=== PATIENT | male | born 1955 | race Caucasian/White ===

== ENCOUNTER 2016-08-14 02:00 | Inpatient (IN) | payer BC ==
--- NOTE | ~2016-08-14 | DS ---
Discharge Summary [facility] [id number] [place]. [address] NAME: MARLON ENGEL V : 53 STATUS : DIS IN PAT#: [id number] AGE: 61 ADM/REG DATE : 08/14/16 MR#: [id number] REPORT SERV DATE: 08/15/16 DICTATED BY: ACE RODRIGUEZ DATE: 08/15/16 REPORT STATUS : Draft TRANSCRIBED BY: MODL DATE: 08/15/16 ADMISSION DATE: 08/14/2016 DISCHARGE DATE: 08/15/2016 ADDENDUM: DATE OF : 08/15/2016 at 4:28 a.m. For details of this patient's admission and hospital course up until 08/15/2016, please see the interim discharge summary dictated by Dr. Patrica Landeros on 08/13/2016, so this is an addendum to that summary. This was a 61-year-old patient who was transferred here from [facility] on 08/14/2016 mostly for QUANTOMETER OPERATOR and dialysis since the patient had developed acute kidney injury, hyperkalemia, metabolic acidosis, pancreatitis with sepsis. The patient then was transferred here. Vas- Cath was placed. QUANTOMETER OPERATOR was started. The patient was status post exploratory laparotomy, was found to have multiple pockets of inflammation and possible compartment syndrome. Abdomen was left open as per discussion with Dr. Harris, the surgeon. The patient was continued on QUANTOMETER OPERATOR and electrolytes were carefully followed. During the night, the patient developed worsening hyperkalemia and metabolic acidosis that were not corrected by the ongoing therapy, QUANTOMETER OPERATOR, and bicarbonates. Pressor requirement continued to increase and the patient went into asystole at 4:03 on the morning of 08/15/2016. Bryant Brown was called. The patient underwent CPR as per ACLS protocol for at least 30 minutes. There was no return of circulation. Time of was at 4:28 a.m. on 08/15/2016. DICTATED BY: Mayur Gomez/CRISTIAN Ace Rodriguez M.D. / [id number] CC: Antoni Partida MD
[~2016-08-14 02:00] MED LIST: PERCOCET 10/3251 TAB PO
[2016-08-14 03:27] LABS: INTERNATIONAL NORMAL RATI 3.1 UNITS (-); PARTIAL THROMBO TIME 71.3 SEC (22.5-37.2); PROTIME (NOT ORD) 31.7 SEC (12.0-14.5)
[2016-08-14 03:29] LABS: HEMATOCRIT 27.3 % (40.0-51.0); HEMOGLOBIN 8.8 g/dL (13.6-17.8); MEAN CORPUS HGB CONC 32.2 g/dL (32.0-36.0); MEAN CORPUSCULAR HEMOGLOB 33.1 pg (26.0-34.0); MEAN CORPUSCULAR VOLUME 102.6 fL (80-100); NUCLEATED RED BLOOD CELLS 5.9 /100WBC (0-0); PLATELET COUNT 509 10/3/uL (150-400); RBC DISTRIBUTION WIDTH 16.4 % (12.0-16.0); RED CELL COUNT 2.66 10/6/uL (4.7-6.1)
[2016-08-14 03:36] LABS: ACANTHOCYTES FEW (3-10/OIF); BAND NEUTROPHILS 19 %; LYMPHOCYTES 7 %; MACROCYTES 1+ (5-10/OIF) (0-5/OIF); METAMYELOCYTES 11 %; MONOCYTES 1 %; MYELOCYTES 7 %; PLATELET ESTIMATE SLT INC (ADEQUATE); POLYCHROMASIA 1+ (2-5/OIF) (0-1/OIF); SCHISTOCYTES OCC (0-2/OIF); SEGMENTED NEUTROPHIL (0) 55 %; TEARDROP SHAPED RBCS FEW (3-10/OIF); TOTAL NUCLEATED CELLS 100
[2016-08-14 03:40] LABS: A/G RATIO 0.4 (0.7-1.9); ALBUMIN 0.9 G/DL (3.5-5.0); BUN (BLOOD UREA NITROGEN) 94 MG/DL (6-23); CHLORIDE, SERUM 104 MMOL/L (96-112); CK-MB 22.7 NG/ML; CREATININE 4.23 MG/DL (0.70-1.30); GFR AFRICAN AMERICAN 16 ML/MIN (>=60); GFR NON AFRICAN AMERICAN 14 ML/MIN (>=60); GLOBULIN 2.3 G/DL (2.5-4.1); GLUCOSE, SERUM 277 MG/DL (60-99); SGPT(ALT) 1665 U/L (5-65); SODIUM, SERUM 134 MMOL/L (135-148); TOTAL BILIRUBIN 1.6 MG/DL (0-1.2); TOTAL PROTEIN 3.2 G/DL (6.0-8.5)
[2016-08-14 03:43] LABS: MANUAL DIFF YES %; WHITE BLOOD CELLS 54.5 10/3/uL (4.5-10.5)
[2016-08-14 03:44] LABS: ALKALINE PHOSPHATASE 465 U/L (45-117); CALCIUM, SERUM 6.8 MG/DL (8.5-10.4); CO2 (CARBON DIOXIDE) 11 MMOL/L (24-34); POTASSIUM, SERUM 7.5 MMOL/L (3.5-5.3); TROPONIN I 0.21 NG/ML (<0.05)
[2016-08-14 03:51] LABS: BE (BASE EXCESS) -17.8 MEQ/L (0 +/- 2.5); CARBOXYHEMOGLOBIN 0.3 % (0-3); HEMOBLOGIN CONTENT 9.7 G/DL (14-18); INSTRUMENT SERIAL # 8083; METHEMOGLOBIN 0.4 % (0-3); MODE CMV; O2 CONTENT 12.2 VOL% (18-24); OPERATOR ID 17370; PCO2 (CO2 TENSION) 31 MMHG (35-45); PO2 (O2 TENSION) 76 MMHG (79-93); SAMPLE Arterial; TIDAL VOLUME 600 ML; pH 7.13 (7.37-7.43)
[2016-08-14 04:04] LABS: CPK 1697 U/L (0-200); SGOT(AST) 8193 U/L (5-40)
[2016-08-14 04:13] LABS: CKMB INDEX (NOT ORD) 1.3; PHOSPHORUS, SERUM 9.7 MG/DL (2.5-4.5)
[2016-08-14 04:35] LABS: PROCALCITONIN 12.67 ng/mL (<0.5)
[2016-08-14 07:56] LABS: BE (BASE EXCESS) -12.8 MEQ/L (0 +/- 2.5); CARBOXYHEMOGLOBIN 0.3 % (0-3); HCO3 (ACTUAL BICARBONATE) 13.7 MEQ/L (23-27); HEMOBLOGIN CONTENT 9.6 G/DL (14-18); INSTRUMENT SERIAL # 8083; METHEMOGLOBIN 0.4 % (0-3); O2 CONTENT 12.9 VOL% (18-24); PCO2 (CO2 TENSION) 34 MMHG (35-45); PO2 (O2 TENSION) 93 MMHG (79-93); SAMPLE Arterial; TIDAL VOLUME 600 ML; pH 7.23 (7.37-7.43)
[2016-08-14 11:41] LABS: TRIGLYCERIDE 138 MG/DL (< 150)
[2016-08-14 12:13] LABS: HEMOGLOBIN 7.9 g/dL (13.6-17.8); MEAN CORPUS HGB CONC 33.6 g/dL (32.0-36.0); MEAN CORPUSCULAR HEMOGLOB 33.6 pg (26.0-34.0); MEAN PLATELET VOLUME 10.6 fL (9.2-13.0); NUCLEATED RED BLOOD CELLS 8.1 /100WBC (0-0); RBC DISTRIBUTION WIDTH 16.3 % (12.0-16.0); RED CELL COUNT 2.35 10/6/uL (4.7-6.1)
[2016-08-14 12:20] LABS: HEMATOCRIT 23.5 % (40.0-51.0); MANUAL DIFF YES %; PLATELET COUNT 313 10/3/uL (150-400); WHITE BLOOD CELLS 48.9 10/3/uL (4.5-10.5)
[2016-08-14 12:21] LABS: CALCIUM, SERUM 7.3 MG/DL (8.5-10.4); CHLORIDE, SERUM 102 MMOL/L (96-112); SODIUM, SERUM 138 MMOL/L (135-148)
[2016-08-14 12:24] LABS: BUN (BLOOD UREA NITROGEN) 66 MG/DL (6-23); CO2 (CARBON DIOXIDE) 19 MMOL/L (24-34); CREATININE 2.65 MG/DL (0.70-1.30); GFR AFRICAN AMERICAN 29 ML/MIN (>=60); GFR NON AFRICAN AMERICAN 25 ML/MIN (>=60); GLUCOSE, SERUM 186 MG/DL (60-99); POTASSIUM, SERUM 5.5 MMOL/L (3.5-5.3)
[2016-08-14 12:36] LABS: BAND NEUTROPHILS 10 %; IMMATURE GRANS ABSOLUTE (CALC) 1.96 10/3/uL (0.0-0.11); LYMPHOCYTES 3 %; LYMPHOCYTES ABSOLUTE (CALC) 1.47 10/3/uL (0.67-4.30); METAMYELOCYTES 3 %; MONOCYTES 2 %; MONOCYTES ABSOLUTE (CALC) 0.98 10/3/uL (0.21-1.20); MYELOCYTES 1 %; SEGMENTED NEUTROPHIL (0) 81 %; TOTAL NUCLEATED CELLS 100
[2016-08-14 12:37] LABS: MACROCYTES 1+ (5-10/OIF) (0-5/OIF); PLATELET ESTIMATE ADQ (ADEQUATE); POLYCHROMASIA 1+ (2-5/OIF) (0-1/OIF)
[2016-08-14 14:51] LABS: BUN (BLOOD UREA NITROGEN) 55 MG/DL (6-23); CALCIUM, SERUM 7.8 MG/DL (8.5-10.4); CHLORIDE, SERUM 103 MMOL/L (96-112); CO2 (CARBON DIOXIDE) 16 MMOL/L (24-34); CREATININE 2.24 MG/DL (0.70-1.30); GFR AFRICAN AMERICAN 35 ML/MIN (>=60); GFR NON AFRICAN AMERICAN 30 ML/MIN (>=60); GLUCOSE, SERUM 155 MG/DL (60-99); PHOSPHORUS, SERUM 6.1 MG/DL (2.5-4.5); POTASSIUM, SERUM 4.9 MMOL/L (3.5-5.3); SODIUM, SERUM 137 MMOL/L (135-148)
[2016-08-14 22:52] LABS: CALCIUM, SERUM 8.3 MG/DL (8.5-10.4); CHLORIDE, SERUM 105 MMOL/L (96-112); CREATININE 1.91 MG/DL (0.70-1.30); GFR AFRICAN AMERICAN 43 ML/MIN (>=60); GFR NON AFRICAN AMERICAN 37 ML/MIN (>=60); SODIUM, SERUM 139 MMOL/L (135-148)
[2016-08-14 22:53] LABS: BUN (BLOOD UREA NITROGEN) 39 MG/DL (6-23); CO2 (CARBON DIOXIDE) 12 MMOL/L (24-34); GLUCOSE, SERUM 62 MG/DL (60-99)
[2016-08-15 00:12] LABS: MEAN CORPUSCULAR HEMOGLOB 32.8 pg (26.0-34.0); MEAN CORPUSCULAR VOLUME 99.5 fL (80-100); MEAN PLATELET VOLUME 10.6 fL (9.2-13.0); NUCLEATED RED BLOOD CELLS 9.1 /100WBC (0-0); RBC DISTRIBUTION WIDTH 16.3 % (12.0-16.0); RED CELL COUNT 2.04 10/6/uL (4.7-6.1)
[2016-08-15 00:13] LABS: HEMATOCRIT 20.3 % (40.0-51.0); HEMOGLOBIN 6.7 g/dL (13.6-17.8); PLATELET COUNT 174 10/3/uL (150-400)
[2016-08-15 00:17] LABS: MANUAL DIFF YES %
[2016-08-15 01:03] LABS: SEGMENTED NEUTROPHIL (0) 58 %; TOTAL NUCLEATED CELLS 100
[2016-08-15 01:07] LABS: BAND NEUTROPHILS 21 %; IMMATURE GRANS ABSOLUTE (CALC) 6.15 10/3/uL (0.0-0.11); LYMPHOCYTES 4 %; LYMPHOCYTES ABSOLUTE (CALC) 1.64 10/3/uL (0.67-4.30); METAMYELOCYTES 12 %; MONOCYTES 2 %; MONOCYTES ABSOLUTE (CALC) 0.82 10/3/uL (0.21-1.20); MYELOCYTES 3 %; NEUTROPHILS ABSOLUTE (CALC) 32.39 10/3/uL (2.02-8.40)
[2016-08-15 01:09] LABS: PATH REVIEW YES
[2016-08-15 01:10] LABS: PLATELET ESTIMATE ADQ (ADEQUATE)
[2016-08-15 03:30] LABS: BE (BASE EXCESS) -17.6 MEQ/L (0 +/- 2.5); CARBOXYHEMOGLOBIN 1.1 % (0-3); HCO3 (ACTUAL BICARBONATE) 9.9 MEQ/L (23-27); HEMOBLOGIN CONTENT 4.8 G/DL (14-18); INSTRUMENT SERIAL # 8083; METHEMOGLOBIN 1.2 % (0-3); MODE CMV; O2 CONTENT 5.5 VOL% (18-24); OPERATOR ID 32193; PCO2 (CO2 TENSION) 31 MMHG (35-45); PO2 (O2 TENSION) 66 MMHG (79-93); SAMPLE Arterial; TIDAL VOLUME 500 ML; pH 7.13 (7.37-7.43)
[2016-08-15 03:53] LABS: MEAN CORPUS HGB CONC 32.4 g/dL (32.0-36.0); MEAN CORPUSCULAR HEMOGLOB 33.6 pg (26.0-34.0); MEAN PLATELET VOLUME 10.4 fL (9.2-13.0); NUCLEATED RED BLOOD CELLS 11.8 /100WBC (0-0)
[2016-08-15 03:54] LABS: HEMATOCRIT 14.5 % (40.0-51.0); HEMOGLOBIN 4.7 g/dL (13.6-17.8); MEAN CORPUSCULAR VOLUME 103.6 fL (80-100); PLATELET COUNT 82 10/3/uL (150-400); WHITE BLOOD CELLS 28.4 10/3/uL (4.5-10.5)
[2016-08-15 03:56] LABS: MANUAL DIFF YES %
[2016-08-15 04:16] LABS: ALBUMIN 1.2 G/DL (3.5-5.0); CHLORIDE, SERUM 101 MMOL/L (96-112); CREATININE 1.61 MG/DL (0.70-1.30); GFR AFRICAN AMERICAN 52 ML/MIN (>=60); GFR NON AFRICAN AMERICAN 45 ML/MIN (>=60); SGPT(ALT) 4111 U/L (5-65); SODIUM, SERUM 136 MMOL/L (135-148)
[2016-08-15 04:42] LABS: ANISOCYTOSIS 1+ (5-10/OIF) (0-5/OIF); BAND NEUTROPHILS 18 %; BUN (BLOOD UREA NITROGEN) 30 MG/DL (6-23); CALCIUM, SERUM 9.8 MG/DL (8.5-10.4); CO2 (CARBON DIOXIDE) 9 MMOL/L (24-34); GLOBULIN 1.2 G/DL (2.5-4.1); GLUCOSE, SERUM 77 MG/DL (60-99); HYPOCHROMIA 1+ (3-10/OIF) (0-2/OIF); IMMATURE GRANS ABSOLUTE (CALC) 4.54 10/3/uL (0.0-0.11); LYMPHOCYTES 3 %; LYMPHOCYTES ABSOLUTE (CALC) 0.85 10/3/uL (0.67-4.30); MACROCYTES 1+ (5-10/OIF) (0-5/OIF); METAMYELOCYTES 11 %; MONOCYTES 4 %; MONOCYTES ABSOLUTE (CALC) 1.14 10/3/uL (0.21-1.20); MYELOCYTES 5 %; NEUTROPHILS ABSOLUTE (CALC) 21.87 10/3/uL (2.02-8.40); PLATELET ESTIMATE DEC (ADEQUATE); POLYCHROMASIA 1+ (2-5/OIF) (0-1/OIF); POTASSIUM, SERUM 6.9 MMOL/L (3.5-5.3); SEGMENTED NEUTROPHIL (0) 59 %; TOTAL BILIRUBIN 2.6 MG/DL (0-1.2); TOTAL NUCLEATED CELLS 100; TOTAL PROTEIN 2.4 G/DL (6.0-8.5)
[2016-08-15 04:43] LABS: PREALBUMIN < 3.0 MG/DL (17.0-43.0)
[2016-08-15 05:03] LABS: ALKALINE PHOSPHATASE 979 U/L (45-117)
[2016-08-15 05:46] LABS: SGOT(AST) 29774 U/L (5-40)
[2016-08-15 06:48] LABS: CK-MB 88.6 NG/ML; CPK 5440 U/L (0-200)
[2016-08-15 06:52] LABS: CKMB INDEX (NOT ORD) 1.6; TROPONIN I 2.15 NG/ML (<0.05)
[2016-08-15 07:19] LABS: PATH REVIEW SEE PATHOLOGY REPORT
== END 2016-08-15 08:24 | disposition expired | DRG 871 ==
LOC: MIC 02:00
PROVIDERS: Internal Medicine; Internal Medicine Nephrology
PROC: 5A1D00Z (ICD-10-PCS; principal; 2016-08-14)
PROC: 5A1935Z Respiratory Ventilation, Less than 24 Consecutive Hours (ICD-10-PCS; 2016-08-14)
PROC: 3E0336Z Introduction of Nutritional Substance into Peripheral Vein, Percutaneous Approach (ICD-10-PCS; 2016-08-14)
PROC: 30233N1 Transfusion of Nonautologous Red Blood Cells into Peripheral Vein, Percutaneous Approach (ICD-10-PCS; 2016-08-15)
DX: A41.9 Sepsis, unspecified organism (principal); R65.21 Severe sepsis with septic shock; J96.02 Acute respiratory failure with hypercapnia; K72.00 Acute and subacute hepatic failure without coma; N17.0 Acute kidney failure with tubular necrosis; K85.20 Alcohol induced acute pancreatitis without necrosis or infection; I47.2 Ventricular tachycardia; K85.81 Other acute pancreatitis with uninfected necrosis; E87.2 Acidosis; T79.A0XA Compartment syndrome, unspecified, initial encounter; N39.0 Urinary tract infection, site not specified; B17.9 Acute viral hepatitis, unspecified; E87.5 Hyperkalemia; N13.9 Obstructive and reflux uropathy, unspecified; I48.2 Chronic atrial fibrillation; I71.2 Thoracic aortic aneurysm, without rupture; I48.0 Paroxysmal atrial fibrillation; E87.6 Hypokalemia
CPT/HCPCS: 31720; 36415; 71010; 80048; 80053; 80069; 82150; 82330; 82330-59; 82550; 82553; 82805; 82962; 83605; 83690; 83735; 83880; 84100; 84134; 84145; 84478; 84484; 85025; 85610; 85730; 86850; 86900; 86901; 86920; 87040; 92950; 93005; 94002; 94003; 94640; A9270-GY; C1752; C9113; J0610; J2185; J2248; J3370; J3411; P9016; P9047